=== PATIENT | female | born 1940 | race African-American/Black ===

== ENCOUNTER 2017-04-30 07:39 | Inpatient (IN) | payer OTHER ==
[~2017-04-30] VITALS: Ht 162.6 cm; Wt 115.1 kg
--- NOTE | ~2017-04-30 | S ---
[facility] [address] [place] [address] SURGICAL PATH RPT PROCEDURE Name: SANIYA WOOD Room #: 410-P ADM IN M.R.#: [id number] Admission: 04/30/17 Date of : 38 Discharge: Report #: [id number] Path Case #: [id number] PATHOLOGY REPORT COLLECTION DATE: 05/02/2017 RECEIVED DATE: 05/02/2017 SUBMITTING PHYS: Dr. Thalia Oliva OTHER PHYS: Dr. Talha Steward SPECIMEN(S) RECEIVED: A.Terminal ileum B.Cecal polyp C.Ascending colon D.Ascending polyps x2 * * * * * * * * * * * * FINAL DIAGNOSIS: A. "Terminal ileum", biopsy: - Small bowel mucosa with reactive changes and prominent reactive appearing lymphoid aggregates; no evidence of active ileitis. B. "Cecal polyp", biopsy: - Colonic mucosa with small well circumscribed leiomyoma; no dysplasia seen (see comment). C. "Ascending colon", biopsy: - Colonic mucosa with mild reactive changes and focal active colitis; no dysplasia seen (see comment). D. "Ascending polyps x2", biopsy: - Tubular adenoma; no high-grade dysplasia. (CLW:david; 05/03/2017) COMMENT: Within specimen B, properly controlled immunohistochemical stains are performed. Block B1: SMA spindle cells strongly reactive S100 spindle cells essentially non-reactive CD117 spindle cells essentially non-reactive CD34 highlights blood vessels; spindle cells non-reactive Within specimen C, focal active colitis can be seen with resolving infectious type colitis, incidentally with bowel preparation and quiescent chronic idiopathic inflammatory bowel disease. No increased chronic inflammation or chronic architectural changes are identified. Clinical and endoscopic correlation is recommended. (CLW:david; 05/03/2017) PATHOLOGIST: Maral Burns M.D. REPORT ELECTRONICALLY SIGNED BY: Maral Burns M.D. [address] [address] SURGICAL PATH RPT PROCEDURE Name: SANIYA WOOD Jose Room #: 410-P [facility] IN [facility].#: [id number] Admission: 04/30/17 Date of : 38 Discharge: Report #: [id number] Path Case #: [id number] DATE/TIME: 05/04/2017 09:31 * * * * * * * * * * * * GROSS PATHOLOGY: A. Received in formalin labeled "Saniya Wood, terminal ileum biopsy," is a segment of jackson soft tissue measuring 0.3 cm in maximum dimension. The specimen is submitted entirely in cassette A1. B. Received in formalin labeled "Saniya Wood, cecal polyp," is a 0.6 x 0.5 x 0.4 cm polypoid piece of jackson soft tissue. The margin is inked and the tissue is sectioned perpendicular to the margin and submitted in its entirety in cassette B1. C. Received in formalin labeled "Saniya Wood, ascending colon biopsy," is a segment of jackson soft tissue measuring 0.4 cm in maximum dimension. The specimen is submitted entirely in cassette C1. D. Received in formalin labeled "Saniya Wood, ascending colon polyp 2," are 5 segments of jackson soft tissue measuring 1.8 x 1.6 x 0.4 cm in aggregate dimensions and ranging from 0.3 to 0.6 cm in maximum dimension. The specimen is submitted entirely in cassette D1. (TSD; 05/02/2017) CLINICAL HISTORY: Pre-OP DX: Diarrhea, abdominal pain Post-OP DX: Colon polyps INITIAL CPT CODE(S): A; 20603 B; 17400, 72036, 16800, 58170, 79920 C; 73337 D; 11493 Professional services performed by [facility] at [facility] [address], [place] [address] Technical services performed by [facility] at [address] [place] [address], [facility] [address], [place] [address]. [facility] [address] [place] [address] PHONE: [phone] DIRECTOR: Duc Leonardo M.D. * * * END OF REPORT * * *
--- NOTE | ~2017-04-30 | P ---
[facility] [place] [place] [address] PROCEDURE REPORT Name: MIQUEL WOOD Room #: 410-P [facility] IN M.R.#: [id number] Admission: 04/30/17 Attend Phys: Talha Steward DO Discharge: Date of : 38 Report #: [id number] THIS REPORT FOR: //name// CC: FAM unknown Talha Steward DO DATE OF SERVICE: 05/03/2017 PROCEDURE: EGD with biopsy. PATIENT OF: Dr. Talha Steward. INDICATION FOR PROCEDURE: This patient has had persistent nausea of undetermined etiology. She is able to eat very little at a time without becoming nauseated almost immediately. EGD is being performed to evaluate the symptom further. Informed consent for this procedure was obtained prior to the administration of any medication. The risks of the procedure, which include bleeding, perforation, infection, complications of sedation and the possibility I could miss something have been explained to the patient and she has indicated her consent by signing. Propofol was slowly titrated before and during this procedure for patient comfort by the anesthesia service. The Rattlen upper videoscope was introduced through the upper esophageal sphincter and advanced under direct visualization to the third portion of the duodenum. Findings are noted on withdrawal of the scope. The duodenal mucosa appears normal throughout its entirety. Pylorus normal mucosa, antrum normal mucosa, body normal mucosa. The visualized portions of the cardia and fundus appeared normal, but there is a significant amount of retained food and fluid in the proximal stomach. I suspect she may have gastroparesis. I removed about half of this fluid and a total 300 mL, so the remaining 300 mL is still in her stomach as it would not come through the scope because it was too thick. Biopsies were obtained from the antrum and the body of the stomach for Helicobacter pylori evaluation with histopathology. Scope was then withdrawn into the esophagus. The Z-line was localized at the top of the gastric folds and appeared normal except for an occasional erosion nonbleeding. The esophageal mucosa itself appeared normal throughout its entirety. The scope was withdrawn. The patient went to the recovery area in stable condition. She tolerated the procedure well. IMPRESSION: 1. Erosions at the Z line in the distal esophagus very minor. 2. Large amount of retained fluid in the stomach, 600 mL to be precise. [address] [address] PROCEDURE REPORT Name: MIQUEL WOOD Jose Room #: 410-P [facility] IN .R.#: [id number] Admission: 04/30/17 Attend Phys: Talha Steward DO Discharge: Date of : 39 Report #: [id number] RECOMMENDATIONS: My recommendations are for her to await the biopsy results and tomorrow we will send her for a gastric emptying study as I suspect she may have gastroparesis. If so, she will benefit most likely from a prokinetic agent such as Reglan or erythromycin before meals and at bedtime. Reglan cannot be taken more than 12 weeks a year because of the side effects that are involved to include Parkinson's symptoms that may not resolve upon withdrawal of the medication. Alternatively, she can use erythromycin at a dose of 60 to 125 mg p.o. one half hour a.c. and at bedtime. Thank you very much once again for allowing me to participate in her care. <ELECTRONICALLY SIGNED> By: Thalia Oliva DO 05/04/17 0922 1340 07 Thalia Oliva DO /nt
--- NOTE | ~2017-04-30 | HC ---
[facility] [address] [place] [address] CONSULTATION Name: MIQUEL WOOD Room #: 410-P ADM IN M.R.#: [id number] Admission: 04/30/17 Attend Phys: Talha Steward DO Discharge: Date of : 38 Report #: [id number] THIS REPORT FOR: //name// CC: FAM unknown Talha Steward DO DATE OF SERVICE: 04/30/2017 ATTENDING PHYSICIAN: Dr. Steward. CONSULTING PHYSICIAN: Blayne Ascencio MD REASON FOR CONSULTATION: Abdominal pain, diarrhea. HISTORY OF PRESENT ILLNESS: This 76-year-old female patient was admitted to [facility] with a 1-week history of lower abdominal pain and diarrhea over the past 2 days. She has had more chronic abdominal pain over the past several weeks associated with constipation. Her pain has been mostly on the left side in the lower abdomen, which she describes as crampy, but occasionally sharp. Her last diarrhea bowel movement was at 9:00 this morning. She denies bright red blood per rectum. She also denies any fever or chills, but has had some nausea and vomiting. She notes no temporal relationship to food. She underwent a CT of the abdomen and pelvis, showing abdominal ascites of uncertain etiology as well as cholelithiasis with no bile duct dilatation. In addition to this, a small left pleural effusion was seen. An abdominal ultrasound was also performed, which revealed cholelithiasis with some gallbladder sludge. There was no significant biliary ductal dilatation identified. The abdominal ascites was also seen. There was borderline gallbladder wall thickening, although that was felt to be artifactual and related to incomplete gallbladder distention. I have been asked to see the patient for further evaluation and treatment. PAST MEDICAL HISTORY: Polio with postpolio syndrome, hypertension and morbid obesity (body mass index 43.5). She denies any previous operations. MEDICATIONS: Currently include Norvasc, Protonix and p.r.n. medications. HOME MEDICATIONS: Include amlodipine and hydrochlorothiazide. ALLERGIES: IV DYE/IODINE. FAMILY HISTORY: Reviewed and noncontributory to this hospitalization. SOCIAL HISTORY: She does report that one of her aunts had breast cancer. SOCIAL HISTORY: The patient denies use of tobacco, alcohol or illicit drugs. [address] [address] CONSULTATION Name: MIQUEL WOOD Room #: 410-P [facility] IN ..#: [id number] Admission: 04/30/17 Attend Phys: Talha Steward DO Discharge: Date of : 39 Report #: [id number] She is accompanied by many family members. REVIEW OF SYSTEMS: As per history of present illness. In addition: GENERAL: The patient denies fever or chills. Denies unintentional weight loss. HEENT: Denies changes in taste, vision, hearing or smell. RESPIRATORY: Denies shortness of breath, COPD or asthma. CARDIOVASCULAR: Denies chest pain or palpitations. GASTROINTESTINAL: As per history of present illness. Denies bright red blood per rectum. He has never undergone a colonoscopy in the past. GENITOURINARY: Denies dysuria, urgency or increased urinary frequency. Denies hematuria. MUSCULOSKELETAL: Reports pain associated with postpolio syndrome. NEUROLOGIC: Denies headaches, numbness or tingling. PSYCHIATRIC: Denies depression, anxiety or suicidal ideations. SKIN AND INTEGUMENTARY: Denies new skin lesions, rashes or moles. ENDOCRINE: Denies polydipsia, polyuria, heat or cold intolerance. HEMATOLOGIC: Denies easy bleeding, bruising or anemia. All other review of systems is negative. PHYSICAL EXAMINATION: VITAL SIGNS: Temperature 98.1, blood pressure 158/88, pulse 88, respirations 16. GENERAL: This is a morbidly obese 76-year-old female patient, in no acute distress. HEENT: Atraumatic, normocephalic with moist mucosal membranes. Oropharynx is clear. She has no scleral icterus. NECK: Supple, no appreciable lymphadenopathy. Trachea is midline. CHEST: Clear bilaterally. No crackles or wheezes. CARDIOVASCULAR: Regular rate and rhythm, S1, S2. ABDOMEN: Soft, but tender to palpation, greatest in the lower abdomen, favoring the left side. She has no rebound or guarding. No palpable masses, no appreciable hernias. GENITOURINARY: Normal external female genitalia; she appears to have uterine prolapse. EXTREMITIES: No clubbing or cyanosis. NEUROLOGIC: Cranial nerves 2-12 grossly intact. PSYCHIATRIC: Normal mood and affect. SKIN AND INTEGUMENTARY: No acute inflammatory changes, rashes or lesions are present. LABORATORY DATA: CBC shows a white blood cell count of 11.6, hemoglobin 12.1, hematocrit 37.0 and platelets 339 with 76% segmented neutrophils. Her electrolytes showed a sodium of 135, potassium 3.3, chloride 97, CO2 of 26, BUN 9, creatinine 0.6 and glucose 97 with normal liver function tests and a normal lipase. Lactate was normal at 1.0. Urinalysis showed 1+ protein, 3+ ketones, 2+ bilirubin and a positive Ictotest. Amorphous urates were present as well. [facility] [address] [place] [address] CONSULTATION Name: MIQUEL WOOD Room #: 410-P [facility] IN [facility].#: [id number] Admission: 04/30/17 Attend Phys: Talha Steward DO Discharge: Date of : 39 Report #: [id number] Her nitrite and leukocyte esterase was negative. RADIOLOGIC STUDIES: CT and abdominal ultrasound findings are as noted above. In addition to this, the patient underwent a pelvic ultrasound showing pelvic ascites and abnormal endometrial thickening thought to possibly reflect endometrial hyperplasia. IMPRESSION AND PLAN: This is a 76-year-old female patient with a history of polio/postpolio syndrome and hypertension who has CT findings for cholelithiasis/sludge with no acute cholecystitis changes seen. Ascites was present and the patient's symptoms are more associated with the lower abdomen, not temporally related to oral intake. I do suspect that she has gastroenteritis, although she could have biliary disease. She is currently taking a regular diet and has no symptoms whatsoever nor does she report having had biliary colic symptoms in the past. She is not in favor of undergoing an operation and I am not certain that she needs one at this time. The best test to rule out acute cholecystitis would be a PIPIDA scan. For now, we will continue her diet and if she has biliary colic symptoms, would recommend checking a PIPIDA scan. I will follow along with serial abdominal exams as well as labs and x-rays as necessary. I sincerely appreciate the opportunity to participate in the care of this patient and will leave further recommendations and orders in the electronic medical record as appropriate. <ELECTRONICALLY SIGNED> By: Blayne Ascencio MD, FACS 05/02/17 0848 [id number] [id number] Blayne Ascencio MD, FACS /nt
--- NOTE | ~2017-04-30 | S ---
[facility] [address] [address] [place] [address] SURGICAL PATH RPT PROCEDURE Name: SANIYA WOOD Room #: 410-P ADM IN M.R.#: [id number] Admission: 04/30/17 Date of : 38 Discharge: Report #: [id number] Path Case #: [id number] PATHOLOGY REPORT COLLECTION DATE: 05/03/2017 RECEIVED DATE: 05/03/2017 SUBMITTING PHYS: Dr. Thalia Oliva OTHER PHYS: Dr. 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 - Negative for intestinal metaplasia or atrophy. (IUV:david; 05/04/2017) COMMENT: Well-controlled Helicobacter pylori immunohistochemical stain performed on block A1-few organisms present consistent with the diagnosis rendered. (IUV:david; 05/04/2017) PATHOLOGIST: Sheila De Santiago M.D. REPORT ELECTRONICALLY SIGNED BY: Sheila De Santiago M.D. DATE/TIME: 05/04/2017 14:16 * * * * * * * * * * * * GROSS PATHOLOGY: Received in formalin labeled "Saniya Wood, BX of random gastric," is a segment of jackson soft tissue measuring 0.7 cm in maximum dimension. The specimen is submitted entirely in cassette A1. (TSD; 05/03/2017) CLINICAL HISTORY: Pre-OP DX: Nausea, vomiting Post-OP DX: Esophageal erosions at z line, retained liquid in stomach INITIAL CPT CODE(S): A; 13967, 13704 Professional services performed by [facility] at [facility] [address], [place] [address] [facility] [address] [place] [address] SURGICAL PATH RPT PROCEDURE Name: SANIYA WOOD Room #: 410-P [facility] IN .R.#: [id number] Admission: 04/30/17 Date of : 38 Discharge: Report #: [id number] Path Case #: [id number] Technical services performed by [facility] at [address] [place] [address], [facility] [address], [place] [address]. [facility] [address] [place] [address] PHONE: [phone] DIRECTOR: Duc Leonardo M.D. * * * END OF REPORT * * *
--- NOTE | ~2017-04-30 | P ---
[facility] [address] [place] [address] PROCEDURE REPORT Name: MIQUEL WOOD Room #: 410-P [facility] IN M.R.#: [id number] Admission: 04/30/17 Attend Phys: Talha Steward DO Discharge: Date of : 38 Report #: [id number] THIS REPORT FOR: //name// CC: FAM unknown Talha Steward DO DATE OF SERVICE: 05/02/2017 COLONOSCOPY WITH BIOPSIES AND SNARE POLYPECTOMIES Patient of Dr. Talha Steward. INDICATION FOR PROCEDURE: This patient was having diarrhea and anemia of undetermined etiology. She is iron deficient. Informed consent for this procedure was obtained prior to the administration of any medication. The risks of the procedure, which include bleeding, perforation, infection, complications of sedation and the possibility I could miss something have been explained to the patient and she has indicated her consent by signing. Propofol was slowly titrated before and during this procedure for patient comfort by the anesthesia service. A digital rectal exam was performed and no abnormalities were palpated. The InvoTekn colonoscope was introduced through the anal sphincter and advanced under direct visualization to the terminal ileum. Findings are noted on withdrawal of the scope. The terminal ileal mucosa appears normal. Biopsies were obtained x 2 from the terminal ileum to evaluate for possible microscopic causes of diarrhea. Cecum, normal mucosa except for a small, maybe 8 mm polyp that was removed in toto with a hot snare and sent to pathology lab. Good hemostasis was noted after that polypectomy. The ileocecal valve appeared normal. Ascending colon, in the ascending colon, there are 2 sessile polyps, one is approximately 8 mm in size and was removed in multiple pieces with a hot snare and sent to pathology lab. The other, which is a little bit distal to the first, is approximately 1.2 cm in size and it was removed in toto with a hot snare and sent to pathology lab. Good hemostasis was noted after all polypectomies. The remaining ascending colonic mucosa appears normal. Hepatic flexure, normal mucosa. Transverse colon, normal mucosa. Splenic flexure, normal mucosa. Descending colon, normal mucosa. Sigmoid colon, I did find 1 uncomplicated diverticulum in the sigmoid colon. It was difficult to keep air in the colon to evaluate the entire mucosa all at once, but I believe that I saw it all intermittently. Rectum, normal mucosa. Retroflex view did not reveal any abnormalities, but once again very difficult to keep air in the rectum for this colonoscopy and therefore, visualization of the rectum was [address] [address] PROCEDURE REPORT Name: MIQUEL WOOD Room #: 410-P [facility] IN ..#: [id number] Admission: 04/30/17 Attend Phys: Talha Steward DO Discharge: Date of : 39 Report #: [id number] limited, but once again, I believe that I saw all of it in portions. The scope was withdrawn. The patient went to the recovery area in stable condition. She tolerated the procedure well. Biopsies had also been obtained from the ascending colon x 2 for evaluation for microscopic causes of diarrhea and good hemostasis was noted after all biopsies as well. IMPRESSION: 1. Colon polyps removed in the cecum and ascending colon as above. 2. Single uncomplicated diverticulum in the sigmoid colon. 3. Random biopsies from the ileum and ascending colon to evaluate for microscopic causes of diarrhea were obtained. RECOMMENDATIONS: Are to await the path report. Thank you very much once again for allowing me to participate in her care. <ELECTRONICALLY SIGNED> By: Thalia Oliva DO 05/03/17 1312 1158 1845 Thalia Oliva DO /nt
[2017-04-30 07:39] VITALS: BP 172/72
[2017-04-30 08:07] LABS: ABSOLUTE NEUTROPHILS 8.8 thou/uL (1.4-8.2); BASOPHILS 0.2 % (0.0-2.0); EOSINOPHILS 0.4 % (0.0-3.0); HEMOGLOBIN 12.1 gm/dL (12.0-15.0); LYMPHOCYTES 14.3 % (24.0-44.0); MCH 26.7 pg (26.0-34.0); MCHC 32.7 g/dL (28.0-37.0); MCV 81.7 fL (80.0-100.0); MONOCYTES 8.8 % (1.0-8.0); PLATELET COUNT 339 thou/uL (150-400); POLYS 76.3 % (36.0-66.0); RBC 4.53 mil/uL (4.20-5.00); RDW 14.8 % (10.5-14.5); WBC 11.6 thou/uL (4.0-11.0)
[2017-04-30 08:15] LABS: CALCIUM 9.3 mg/dL (8.5-10.1); CREATININE 0.6 mg/dL (0.6-1.0); POTASSIUM 3.3 mmol/L (3.5-5.1)
[2017-04-30 08:22] LABS: ALBUMIN 2.7 g/dL (3.4-5.0); DIRECT BILIRUBIN 0.2 mg/dL (<0.1-0.3); TOTAL BILIRUBIN 0.6 mg/dL (<0.1-1.0); TOTAL PROTEIN 7.6 g/dL (6.4-8.2)
[2017-04-30] MEDS ORDERED: AMLODIPINE BESY10 MG PO (08:58)
[2017-04-30] MEDS ORDERED: HYDROCHLOROTHIA25 M2 PO (08:58)
[2017-04-30 09:13] LABS: URINE BILIRUBIN 2+ (Negative); URINE BLOOD 1+ (Negative); URINE CLARITY CLEAR; URINE COLOR YELLOW; URINE GLUCOSE-RANDOM* NEGATIVE (Negative); URINE KETONES 3+ (Negative); URINE LEUKOCYTES NEGATIVE (Negative); URINE NITRITE NEGATIVE (Negative); URINE PROTEIN (DIPSTICK) 1+ (Negative); URINE SPECIFIC GRAVITY >= 1.030 (1.005-1.035); URINE UROBILINOGEN 0.2 E.U./dl (0.2-1.0)
[2017-04-30 09:20] LABS: ICTOTEST (BILI CONFIRMATORY) Positive (Negative)
[2017-04-30 09:29] LABS: SQUAMOUS 0-3 Few /LPF (0-3)
[2017-04-30 09:30] LABS: AMORPHOUS URATES Few /LPF (None Seen); BACTERIA 1-9 Few /HPF (None Seen); URINE RBC 0-2 Rare /HPF (0-2); URINE WBC 0-5 Rare /HPF (0-5)
[2017-04-30 09:34] LABS: URINE REDUCING SUBSTANCE NEGATIVE
[2017-04-30 14:40] VITALS: BP 173/71
[2017-04-30 15:29] VITALS: BP 143/82
[2017-04-30 16:40] VITALS: BP 158/88
[2017-04-30 20:00] VITALS: BP 139/65
[2017-05-01 04:00] VITALS: BP 138/77
[2017-05-01 06:05] LABS: MCV 81.3 fL (80.0-100.0); WBC 7.8 thou/uL (4.0-11.0)
[2017-05-01 06:09] LABS: HEMATOCRIT 32.7 % (37.0-47.0); HEMOGLOBIN 10.6 gm/dL (12.0-15.0); MCH 26.4 pg (26.0-34.0); MCHC 32.5 g/dL (28.0-37.0); PLATELET COUNT 340 thou/uL (150-400); RBC 4.02 mil/uL (4.20-5.00); RDW 14.9 % (10.5-14.5)
[2017-05-01 06:17] LABS: CALCIUM 9.7 mg/dL (8.5-10.1); CREATININE 0.6 mg/dL (0.6-1.0); MAGNESIUM 1.9 mg/dL (1.8-2.4); POTASSIUM 3.4 mmol/L (3.5-5.1)
[2017-05-01 07:31] VITALS: BP 142/75
[2017-05-01 08:40] LABS: ABSOLUTE NEUTROPHILS 5.5 thou/uL (1.4-8.2)
[2017-05-01 08:43] LABS: ANISOCYTOSIS 1+; BURR CELLS FEW; HYPOCHROMASIA 2+; SCHISTOCYTES FEW
[2017-05-01 08:44] LABS: LARGE PLATELETS SEVERAL
[2017-05-01] MEDS ORDERED: ZOFRAN ODT4 MG PO (08:49)
[2017-05-01] MEDS ORDERED: OXYCODONE HCL 55 MG PO (08:49)
[2017-05-01 15:03] LABS: % SATURATION 12 % (20-39); IRON 16 ug/dL (50-170); TIBC 132 ug/dL (250-450)
[2017-05-01 15:18] VITALS: BP 129/75
[2017-05-01 15:31] LABS: FERRITIN 507 ng/mL (8-252)
[2017-05-01 20:00] VITALS: BP 151/89
[2017-05-02 02:11] LABS: GLYCOHEMOGLOBIN (HGB A1C) 4.8 % (4.8-5.6)
[2017-05-02 04:00] VITALS: BP 151/78
[2017-05-02 04:48] LABS: ALBUMIN 2.5 g/dL (3.4-5.0); CALCIUM 8.9 mg/dL (8.5-10.1); CREATININE 0.5 mg/dL (0.6-1.0); MAGNESIUM 1.8 mg/dL (1.8-2.4); POTASSIUM 3.7 mmol/L (3.5-5.1); TOTAL BILIRUBIN 0.4 mg/dL (<0.1-1.0); TOTAL PROTEIN 6.7 g/dL (6.4-8.2)
[2017-05-02 08:38] VITALS: BP 174/69
[2017-05-02 20:00] VITALS: BP 193/81
[2017-05-02 23:52] VITALS: BP 139/68
[2017-05-03 04:00] VITALS: BP 150/85
[2017-05-03 09:19] VITALS: BP 156/76
[2017-05-03 14:10] VITALS: BP 162/82
[2017-05-03 14:54] LABS: ALBUMIN 2.4 g/dL (3.4-5.0)
[2017-05-03 15:21] VITALS: BP 155/74
[2017-05-03 15:45] LABS: INR 1.1; PROTIME 11.4 Seconds (9.3-11.4)
[2017-05-03 19:50] VITALS: BP 150/81
[2017-05-04 04:10] VITALS: BP 151/121
[2017-05-04 07:32] VITALS: BP 156/71
[2017-05-04 15:30] VITALS: BP 160/84
[2017-05-04 19:40] VITALS: BP 149/70
[2017-05-05 04:22] VITALS: BP 142/82
[2017-05-05 06:25] LABS: HEMATOCRIT 31.6 % (37.0-47.0); HEMOGLOBIN 10.3 gm/dL (12.0-15.0); MCH 26.7 pg (26.0-34.0); MCHC 32.5 g/dL (28.0-37.0); PLATELET COUNT 362 thou/uL (150-400); RBC 3.85 mil/uL (4.20-5.00); RDW 14.6 % (10.5-14.5); WBC 5.3 thou/uL (4.0-11.0)
[2017-05-05 06:47] LABS: CALCIUM 9.2 mg/dL (8.5-10.1); CREATININE 0.4 mg/dL (0.6-1.0)
[2017-05-05 06:58] LABS: POTASSIUM 2.7 mmol/L (3.5-5.1)
[2017-05-05 07:13] VITALS: BP 159/82
[2017-05-05 07:23] VITALS: BP 100/53
[2017-05-05 08:27] LABS: ABSOLUTE NEUTROPHILS 3.1 thou/uL (1.4-8.2); ANISOCYTOSIS 1+; ATYPICAL LYMPHS 1 %; POLYCHROMASIA OCCASIONAL
[2017-05-05 11:01] LABS: CALCIUM 9.4 mg/dL (8.5-10.1); CREATININE 0.4 mg/dL (0.6-1.0); MAGNESIUM 1.7 mg/dL (1.8-2.4)
[2017-05-05 11:08] LABS: POTASSIUM 2.7 mmol/L (3.5-5.1)
[2017-05-05 15:26] VITALS: BP 152/88
[2017-05-05 19:35] VITALS: BP 148/98
[2017-05-06 04:00] VITALS: BP 130/67
[2017-05-06 04:39] LABS: MAGNESIUM 1.6 mg/dL (1.8-2.4); POTASSIUM 3.2 mmol/L (3.5-5.1)
[2017-05-06 08:10] VITALS: BP 134/69
[2017-05-06 16:08] VITALS: BP 150/67
[2017-05-06 19:42] VITALS: BP 148/71
[2017-05-07 03:21] LABS: HEMATOCRIT 33.5 % (37.0-47.0); HEMOGLOBIN 10.8 gm/dL (12.0-15.0); MCH 26.4 pg (26.0-34.0); MCHC 32.3 g/dL (28.0-37.0); PLATELET COUNT 346 thou/uL (150-400); RBC 4.09 mil/uL (4.20-5.00); RDW 14.8 % (10.5-14.5); WBC 8.3 thou/uL (4.0-11.0)
[2017-05-07 03:33] LABS: CALCIUM 9.1 mg/dL (8.5-10.1); CREATININE 0.5 mg/dL (0.6-1.0); MAGNESIUM 1.5 mg/dL (1.8-2.4); POTASSIUM 3.8 mmol/L (3.5-5.1)
[2017-05-07 04:00] VITALS: BP 153/78
[2017-05-07 04:45] LABS: ABSOLUTE NEUTROPHILS 5.9 thou/uL (1.4-8.2); ANISOCYTOSIS SLIGHT; LARGE PLATELETS OCCASIONAL; METAMYELOCYTES 1 %
[2017-05-07 07:21] VITALS: BP 150/82
[2017-05-07] MEDS ORDERED: REGLAN 10 MG TA10 MG PO (08:52)
[2017-05-07] MEDS ORDERED: AMOXICILLIN 50500 MG PO (14:48)
[2017-05-07] MEDS ORDERED: CLARITHROMYCIN500 MG PO (14:48)
[2017-05-07 15:40] VITALS: BP 122/68
[2017-05-07 19:53] VITALS: BP 137/61
[2017-05-08 03:50] VITALS: BP 123/77
[2017-05-08 10:12] VITALS: BP 140/56
== END 2017-05-08 11:20 | DRG 444 ==
LOC: ER 07:39 → 4N 10:15 → EROBS 10:15 → 4N 14:41
PROVIDERS: Emergency Medicine; Family Medicine; Internal Medicine Gastroenterology; Nurse Practitioner; Registered Nurse
PROC: 0DBB8ZX Excision of Ileum, Via Natural or Artificial Opening Endoscopic, Diagnostic (ICD-10-PCS; principal; 2017-05-02)
PROC: 0DBH8ZX Excision of Cecum, Via Natural or Artificial Opening Endoscopic, Diagnostic (ICD-10-PCS; principal; 2017-05-02)
PROC: 0DBK8ZX Excision of Ascending Colon, Via Natural or Artificial Opening Endoscopic, Diagnostic (ICD-10-PCS; principal; 2017-05-02)
PROC: 0DB68ZX Excision of Stomach, Via Natural or Artificial Opening Endoscopic, Diagnostic (ICD-10-PCS; 2017-05-03)
DX: K80.20 Calculus of gallbladder without cholecystitis without obstruction (principal); E43 Unspecified severe protein-calorie malnutrition; Z68.41 Body mass index [BMI] 40.0-44.9, adult; K22.10 Ulcer of esophagus without bleeding; R18.8 Other ascites; A08.4 Viral intestinal infection, unspecified; K31.84 Gastroparesis; K25.9 Gastric ulcer, unspecified as acute or chronic, without hemorrhage or perforation; E83.42 Hypomagnesemia; D12.2 Benign neoplasm of ascending colon; D12.0 Benign neoplasm of cecum; K57.30 Diverticulosis of large intestine without perforation or abscess without bleeding; E87.6 Hypokalemia; I10 Essential (primary) hypertension; E66.01 Morbid (severe) obesity due to excess calories; A80.9 Acute poliomyelitis, unspecified; Z80.3 Family history of malignant neoplasm of breast; Z79.899 Other long term (current) drug therapy; Z91.041 Radiographic dye allergy status
CPT/HCPCS: 10091; 62110; 62900; 70005